=== PATIENT | male | born 1990 | race Caucasian/White ===

== ENCOUNTER 2018-08-30 17:20 | Emergency (ER) | payer SELFPAY ==
[2018-08-30] MEDS ORDERED: ASPIRIN 81 MG TABLET, CHEWABLE PO ONE (17:54)
[2018-08-30] MEDS ORDERED: LORAZEPAM 1 MG TABLET PO ONE (17:54)
--- NOTE | 2018-08-30 17:57 | ER Document Report ---
ED Medical Screen (RME) - General Chief Complaint: Chest Pressure Stated Complaint: CHEST PRESSURE Time Seen by Provider: 08/30/18 17:35 Mode of Arrival: Ambulatory Information source: Patient Notes: 28-year-old male with anxiety presents with complaint of 2 weeks of intermittent substernal chest pressure that worsened just prior to arrival while driving. Patient states that he had associated shortness of breath and " I felt like I was not getting enough air". Patient does admit to prior similar symptoms with previous anxiety attacks. He denies any known stressors today. He denies tobacco use, alcohol use, drug use. He denies family history of early cardiac disease. I have greeted and performed a rapid initial assessment of this patient. A comprehensive ED assessment and evaluation of the patient, analysis of test results and completion of medical decision making process we will be contacted by additional ED providers. PHYSICAL EXAMINATION: Vital signs reviewed-afebrile, not hypoxic GENERAL: Well-appearing, well-nourished and in no acute distress. LUNGS: No respiratory distress Musculoskeletal: Normal range of motion NEUROLOGICAL: Normal speech, normal gait. PSYCH: Normal mood, normal affect. SKIN: Warm, Dry, normal turgor, no rashes or lesions noted. TRAVEL OUTSIDE OF THE [place] IN LAST 30 DAYS: No - HPI Onset: Just prior to arrival Quality of pain: Pressure Severity: Mild Associated Symptoms: Chest pain Exacerbated by: Denies Relieved by: Denies Similar symptoms previously: Yes Recently seen / treated by doctor: No - Related Data Smoking: Non-smoker Frequency of alcohol use: None Drug Abuse: None Allergies/Adverse Reactions: No Known Allergies Allergy (Unverified 08/30/18 17:21) Past Medical History Renal/ Medical History: Denies: Hx Peritoneal Dialysis Physical Exam - Vital signs Vitals: Temp Pulse Resp BP Pulse Ox 98.4 F 69 16 134/83 H 100 08/30/18 17:34 08/30/18 17:34 08/30/18 17:34 08/30/18 17:34 08/30/18 17:34 Course - Vital Signs Vital signs: Temp Pulse Resp BP Pulse Ox 98.4 F 69 16 134/83 H 100 08/30/18 17:34 08/30/18 17:34 08/30/18 17:34 08/30/18 17:34 08/30/18 17:34
--- NOTE | 2018-08-30 18:47 | RADIOLOGY REPORT (SQ) ---
EXAM DESCRIPTION: CHEST 2 VIEWS COMPLETED DATE/TIME: 08/30/2018 6:16 pm REASON FOR STUDY: chest pressure COMPARISON: None. EXAM PARAMETERS: NUMBER OF VIEWS: two views TECHNIQUE: Digital Frontal and Lateral radiographic views of the chest acquired. RADIATION DOSE: NA LIMITATIONS: none FINDINGS: LUNGS AND PLEURA: No opacities, masses or pneumothorax. No pleural effusion. MEDIASTINUM AND HILAR STRUCTURES: No masses or contour abnormalities. HEART AND VASCULAR STRUCTURES: Heart normal size. No evidence for failure. BONES: No acute findings. HARDWARE: None in the chest. OTHER: No other significant finding. IMPRESSION: NO ACUTE RADIOGRAPHIC FINDING IN THE CHEST. TECHNICAL DOCUMENTATION: JOB ID: [id number] [employer]- All Rights Reserved Reading location - IP/workstation name: [email or web address]
--- NOTE | 2018-08-30 19:04 | EKG REPORT ---
SEVERITY:- ABNORMAL ECG - SINUS ARRHYTHMIA, RATE 54-77 NONSPECIFIC INTRAVENTRICULAR CONDUCTION DELAY : Confirmed by: Christian Ruiz 30-Aug-2018 19:04:01
[2018-08-30] MEDS ORDERED: DEXAMETHASONE SOD PHOS INJ 10 MG/1 ML VIAL IV ONE (19:26)
--- NOTE | 2018-08-30 19:33 | ER Document Report ---
ED General - General Chief Complaint: Chest Pressure Stated Complaint: CHEST PRESSURE Time Seen by Provider: 08/30/18 17:35 Mode of Arrival: Ambulatory Notes: Patient is a 28-year-old male that comes to the emergency department for chief complaint of 2 weeks of a cough and a sensation like he is not getting enough he states he has a discomfort across his chest that is mild, it has never become severe, but it has not resolved. He denies dizziness, passing out, fever , nausea or vomiting. 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 He denies history of asthma, denies sick history of smoking, denies alcohol or recreational drugs. Denies any family history of early cardiac abnormality. He denies particularly being anxious about it. He takes no daily medications, denies any medical history. TRAVEL OUTSIDE OF THE [place] IN LAST 30 DAYS: No - Related Data Allergies/Adverse Reactions: No Known Allergies Allergy (Unverified 08/30/18 17:21) Past Medical History - General Information source: Patient - Social History Smoking Status: Never Smoker Frequency of alcohol use: None Drug Abuse: None Lives with: Family Family History: Reviewed & Not Pertinent Patient has suicidal ideation: No Patient has homicidal ideation: No - Medical History Medical History: Negative Renal/ Medical History: Denies: Hx Peritoneal Dialysis Surgical Hx: Negative - Immunizations Immunizations up to date: Yes Hx Diphtheria, Pertussis, Tetanus Vaccination: Yes Review of Systems - Review of Systems Constitutional: No symptoms reported EENT: No symptoms reported Cardiovascular: See HPI Respiratory: See HPI Gastrointestinal: No symptoms reported Genitourinary: No symptoms reported Male Genitourinary: No symptoms reported Musculoskeletal: No symptoms reported Skin: No symptoms reported Hematologic/Lymphatic: No symptoms reported Neurological/Psychological: No symptoms reported Physical Exam - Vital signs Vitals: Temp Pulse Resp BP Pulse Ox 98.4 F 69 16 134/83 H 100 08/30/18 17:34 08/30/18 17:34 08/30/18 17:34 08/30/18 17:34 08/30/18 17:34 - Notes Notes: GENERAL: Alert, interacts well. No acute distress. HEAD: Normocephalic, atraumatic. EYES: Pupils equal, round, and reactive to light. Extraocular movements intact. ENT: Oral mucosa moist, tongue midline. NECK: Full range of motion. Supple. Trachea midline. LUNGS: Clear to auscultation bilaterally, no wheezes, rales, or rhonchi. No respiratory distress. HEART: Regular rate and rhythm. No murmur ABDOMEN: Soft, non-tender. Non-distended. Bowel sounds present in all 4 quadrants. GENITOURINARY: Deferred EXTREMITIES: Moves all 4 extremities spontaneously. No edema, normal radial and dorsalis pedis pulses bilaterally. No cyanosis. BACK: no cervical, thoracic, lumbar midline tenderness. No saddle anesthesia, normal distal neurovascular exam. NEUROLOGICAL: Alert and oriented x3. Normal speech. [cranial nerves II through XII grossly intact]. PSYCH: Normal affect, normal mood. SKIN: Warm, dry, normal turgor. No rashes or lesions noted. Course - Re-evaluation Re-evalutation: EKG shows sinus arrhythmia without tachycardia, slightly peaked T waves anteriorly, however patient is thin and fit and I suspect this is related to body habitus. No T wave inversions or ST segment changes in consecutive leads, unremarkable HI and QTC. Chest x-ray is unremarkable. On examination patient is well-appearing, has clear lung sounds, no tachypnea, no signs of distress. He does not have pain on palpation of the chest wall. He does report some pain with breathing and in general constant pain for the past couple of weeks with frequent coughing episodes. No fevers, unremarkable physical exam otherwise. His vital signs and presentation do not suggest aortic dissection, ACS, or pulmonary embolism. I do suspect he has pleurisy versus mild bronchitis. Patient was given Ativan and he is calm now but after discussion and evaluation of I have lower suspicion of panic attack type symptoms. After discussion with patient of details and options decision was made to treat patient with dexamethasone, he was also placed on Naprosyn anti-inflammatory for suspected pleurisy. Discussed follow-up, discussed return precautions in detail. Patient states understanding and agreement. - Vital Signs Vital signs: Temp Pulse Resp BP Pulse Ox 98.4 F 69 18 124/84 99 08/30/18 17:34 08/30/18 17:34 08/30/18 20:01 08/30/18 20:01 08/30/18 20:01 Discharge - Discharge Clinical Impression: Shortness of breath Chest pain Qualifiers: Chest pain type: unspecified Qualified Code(s): R07.9 - Chest pain, unspecified Condition: Stable Disposition: HOME, SELF-CARE Additional Instructions: Your chest x-ray and EKG do not show any concerning findings. Your evaluation and symptoms are most consistent with pleurisy, inflammation of the lining around the lungs. You have been treated for this, I also recommend taking the medication prescribed as directed. Symptoms should slowly resolve with time. Follow-up with primary care. Return if you worsen including increased difficulty breathing, severe pain, passing out, or any other concerning or worsening symptoms. Prescriptions: Naproxen 500 mg PO BID #14 tablet
[2018-08-30 20:11] VITALS: BP 124/84
== END 2018-08-30 20:23 | disposition home or self-care (01) ==
LOC: ER 17:20
DX: R06.02 Shortness of breath (principal); R07.9 Chest pain, unspecified
CPT/HCPCS: 93005; 99284; 96374; 71046; 93010; J1100